=== PATIENT | female | born 1970 | race American Indian/Alaskan Native ===

== ENCOUNTER 2021-05-24 08:29 | Outpatient (CLI) | payer BC ==
--- NOTE | 2021-05-24 12:54 | XRay Report ---
Lumbar spine 6 views INDICATION: Low back pain IMPRESSION: The lumbar spinal alignment is normal. There is minimal to mild facet arthropathy at L4-L 5 and L5-S1. No significant neural foraminal stenosis appreciated. Signer Name: Adryan Fernandez MD Signed: 05/24/2021 12:50 PM Workstation Name: [id number]
--- NOTE | 2021-05-24 12:55 | XRay Report ---
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 There is prominent anterior extension of the disc osteophyte complex at C5-C6 w hich causes some mass effect on the anterior soft tissues. Signer Name: Adryan Fernandez MD Signed: 05/24/2021 12:51 PM Workstation Name: [id number]
== END 2021-05-24 08:30 | disposition home or self-care (01) ==
LOC: XRAY 08:29
PROVIDERS: ATTEND Internal Medicine
DX: M47.817 Spondylosis without myelopathy or radiculopathy, lumbosacral region (principal); M25.78 Osteophyte, vertebrae
CPT/HCPCS: 72050; 72110